=== PATIENT | male | born 1970 | race Caucasian/White ===

== ENCOUNTER 2024-11-28 20:44 | Observation (INO) ==
[2024-11-28 21:34] LABS: Hematocrit (blood only) 45.4 % (42.0-52.0); Hemoglobin 15.4 g/dl (14.0-18.0); Immature Granulocytes # (auto) 0.02 K/uL (0.01-0.20); Immature Granulocytes % (auto) 0.3 %; Mean Corpuscular Hemoglobin 30.0 pg (25.0-34.0); Mean Corpuscular Volume 88.3 fL (80.0-100.0); Platelet Count 243 K/uL (130-400); RDW Standard Deviation 39.6 fL (36.4-46.3); Red Blood Count 5.14 M/uL (4.70-6.10); White Blood Count 7.91 K/ul (4.8-10.8)
[2024-11-28 21:46] LABS: Alanine Aminotransferase 36.0 U/L (7-52); Albumin Globulin Ratio 1.2 (0.9-2); Alkaline Phosphatase 77.0 U/L (34-104); Anion Gap 7.0 (3-11); Bilirubin,Total 0.5 mg/dl (0.2-1.0); Blood Urea Nitrogen 15.0 mg/dl (6-23); Calcium 9.0 mg/dl (8.6-10.3); Carbon Dioxide 28.0 mmol/L (21-32); Chloride 105.0 mmol/L (98-107); Creatinine Clr Calc Pharmacy 105.0 ml/min; Globulin 3.4 gm/dl (2.5-4.0); Glucose 112.0 mg/dl (70-99(Fasting)); Lipase 12.0 U/L (11-82); Potassium 4.0 mmol/L (3.5-5.1); Sodium 140.0 mmol/L (136-145); Total Protein 7.4 gm/dl (6.0-8.3)
--- NOTE | 2024-11-28 21:56 | Emergency Department Note ---
History of Present Illness General Chief complaint: Abdominal Pain Stated complaint: ABD PAIN Time Seen by Provider: 11/28/24 21:42 History of Present Illness Maximum Pain Intensity: 8 This is a 54-year-old male presenting to the emergency department for evaluation of periumbilical abdominal pain. 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 He states that he was bending over when he felt periumbilical abdominal pain. He has a hernia in this area and is concerned this may be the cause of the pain. His discomfort has not improved. Episode was around 2 PM, roughly 8 hours ago. He is without nausea or vomiting. No difficulty going to the bathroom. Discomfort is rated an 8/10. No history of abdominal surgery. Home Medications Medication Instructions Recorded Confirmed Type acetaminophen 500 mg tablet 1,000 mg PO Q6H PRN Pain 11/28/24 11/28/24 History (Tylenol Extra Strength) Allergies Allergy/AdvReac Type Severity Reaction Status Date / Time pollen extracts Allergy Intermediate ITCHY Verified 11/28/24 21:41 EYES, SNEEZING, CONGESTION Past Med/Surg History Problem List (Updated 11/29/24 @ 04:40 by Pablo Lazaro PA-C) Periumbilical hernia (Acute) Kidney mass (Acute) Small bowel obstruction (Acute) No significant past surgical history No chronic diseases present Social History Smoking Status: Former smoker Hx Alcohol Use: Yes Alcohol type: beer Hx Substance Use: No Communication Ability: Effective Beliefs That Will Affect Care: None Current Living Situation: Alone Other Information That Helps Us Care for You: No Feels Safe at Home: Yes Safety Concerns: Feels Safe At This Time Assistive Devices: Denture - Upper, Denture - Lower and Glasses Review of Systems A total of 10 systems reviewed and were otherwise negative Physical Exam Vital Signs Vital Signs - 24 hr 11/28/24 20:50 11/28/24 21:08 11/28/24 21:16 Temperature 36.6 C Temperature Source Temporal Artery Scan Pulse Rate 62 61 Pulse Rate [Apical] Respiratory Rate 16 Respiratory Effort / Characteristics Non-Labored Spontaneous Respiratory Depth Normal Respiratory Pattern Regular Blood Pressure 171/96 H Blood Pressure Mean 121 Pulse Oximetry 95 Oxygen Delivery Method Room Air Room Air Sepsis Recent Fever Within 48 Hours No Sepsis New/Unexplained Change in Mental Status N/A Sepsis Action Taken by Nursing No Action Required 11/28/24 21:16 11/28/24 22:00 11/29/24 00:06 Temperature Temperature Source Pulse Rate 67 60 Pulse Rate [Apical] Respiratory Rate 15 13 Respiratory Effort / Characteristics Non-Labored Respiratory Depth Normal Respiratory Pattern Blood Pressure 158/92 H 140/85 Blood Pressure Mean 114 103 Pulse Oximetry 96 94 Oxygen Delivery Method Room Air Room Air Sepsis Recent Fever Within 48 Hours Sepsis New/Unexplained Change in Mental Status Sepsis Action Taken by Nursing 11/29/24 01:00 11/29/24 01:25 Temperature Temperature Source Pulse Rate 76 Pulse Rate [Apical] 59 L Respiratory Rate 16 18 Respiratory Effort / Characteristics Non-Labored Spontaneous Respiratory Depth Normal Respiratory Pattern Blood Pressure 137/90 Blood Pressure Mean 99 Pulse Oximetry 95 96 Oxygen Delivery Method Room Air Room Air Sepsis Recent Fever Within 48 Hours Sepsis New/Unexplained Change in Mental Status Sepsis Action Taken by Nursing VITALS: Vitals are noted on the nurse's note and reviewed by myself. Vital signs stable. GENERAL: Well-developed, well-nourished, white male, who is in no acute distress and resting comfortably. Patient is cooperative with the examination. HEAD: Normocephalic atraumatic. NECK: Supple without nuchal rigidity. No lymphadenopathy. No thyromegaly. Cervical spine is nontender. HEART: Regular rate and rhythm without murmurs gallops or rubs. LUNGS: Clear to auscultation bilaterally without wheezes, rales or rhonchi. No retractions or accessory muscle use. ABDOMEN: Positive normal bowel sounds x 4. Soft with noted periumbilical tenderness. There is a small periumbilical hernia that was easily reduced with manual manipulation at bedside. MUSCULOSKELETAL: No muscle atrophy, erythema, or edema noted. Full range of motion in all extremities. NEURO: Patient was alert and oriented to person place and time. CN II through XII grossly intact. SKIN: The skin was without rashes, erythema, edema, or bruising. Capillary refill less than 2 seconds. Course Administered Medications Lactated Ringer's (Lr) 1,000 mls @ 125 mls/hr IV .Q8H AP Stop: 11/29/24 11:43 Last Admin: 11/29/24 03:51 Dose: 125 mls/hr Documented By: ELS Discontinued Medications Acetaminophen (Ofirmev) 1,000 mg in 100 mls @ 400 mls/hr IV NOW STA Stop: 11/28/24 22:07 Last Infusion: 11/28/24 22:17 Dose: Infused Documented By: NRAmbrose Admin: 11/28/24 21:58 Dose: 400 mls/hr Documented By: HALEY Sodium Chloride (Nss) 1,000 mls @ 999 mls/hr IV .Q1H1M ONE Stop: 11/28/24 22:53 Last Infusion: 11/29/24 00:10 Dose: Infused Documented By: Admin: 11/28/24 21:58 Dose: 999 mls/hr Documented By: HALEY Ioversol (Optiray 320 100ml) 90 ml IV ONCE ONE Stop: 11/28/24 22:41 Last Admin: 11/28/24 22:40 Dose: 90 ml Documented By: CODY Medical Decision Making Differential Diagnosis Differential diagnosis: Etiologies such as biliary colic, cholecystitis, hepatitis, pancreatitis, cardiac disease, pancreatitis, gastritis, peptic ulcer disease, appendicitis, cystitis, diverticulitis, mesenteric ischemia, inflammatory bowel disease, ileus, bowel obstruction, testicular/adnexal torsion, aortic pathology, shingles, as well as others were considered Laboratory Data 11/28/24 21:00 11/28/24 21:00 Lab Results 11/28/24 11/28/24 Range/Units 21:00 22:50 WBC 7.91 (4.8-10.8) K/ul RBC 5.14 (4.70-6.10) M/uL Hgb 15.4 (14.0-18.0) g/dl Hct 45.4 (42.0-52.0) % MCV 88.3 (80.0-100.0) fL MCH 30.0 (25.0-34.0) pg MCHC 33.9 (32.0-36.0) g/dL RDW Std Deviation 39.6 (36.4-46.3) fL RDW Coeff of Roberta 12.3 (11.5-14.5) % Plt Count 243 (130-400) K/uL MPV 9.9 (9.4-12.4) fL Immature Gran % (Auto) 0.3 % Neut % (Auto) 67.8 % Lymph % (Auto) 20.9 % [place] % (Auto) 7.7 % Eos % (Auto) 3.0 % Baso % (Auto) 0.3 % Neut # (Auto) 5.37 (1.40-6.50) K/uL Lymph # (Auto) 1.65 (1.20-3.40) K/uL [place] # (Auto) 0.61 H (0.11-0.59) K/uL Eos # (Auto) 0.24 (0.00-0.50) K/uL Baso # (Auto) 0.02 (0.00-0.20) K/uL Immature Gran # (Auto) 0.02 (0.01-0.20) K/uL Sodium 140 (136-145) mmol/L Potassium 4.0 (3.5-5.1) mmol/L Chloride 105 (98-107) mmol/L Carbon Dioxide 28 (21-32) mmol/L Anion Gap 7 (3-11) BUN 15 (6-23) mg/dl Creatinine 0.92 (0.6-1.4) mg/dl Est Cr Clr Drug Dosing 105.0 ml/min eGFR 98.24 BUN/Creatinine Ratio 16.3 (10-20) Glucose 112 H (70-99(Fasting)) mg/dl Calcium 9.0 (8.6-10.3) mg/dl Total Bilirubin 0.5 (0.2-1.0) mg/dl AST 25 (13-39) U/L ALT 36 (7-52) U/L Alkaline Phosphatase 77 (34-104) U/L Total Protein 7.4 (6.0-8.3) gm/dl Albumin 4.0 (3.4-5.0) gm/dl Globulin 3.4 (2.5-4.0) gm/dl Albumin/Globulin Ratio 1.2 (0.9-2) Lipase 12 (11-82) U/L Urine Color Yellow Urine Appearance Clear (Clear) Urine pH 7.5 (4.5-7.5) Ur Specific [place] 1.034 H (1.000-1.030) Urine Protein Negative (Negative) Urine Glucose (UA) Negative (Negative) Urine Ketones 2+ H (Negative) Urine Blood Negative (Negative) Urine Nitrite Negative (Negative) Urine Bilirubin Negative (Negative) Urine Urobilinogen Negative (Negative) Ur Leukocyte Esterase Trace H (Negative) Urine WBC (Auto) 0-5 (0-5) /hpf Urine RBC (Auto) 0-2 (0-2) /hpf U Hyaline Cast (Auto) 0-2 (0-2) /lpf U Epithel Cells (Auto) 0-2 (0-2) /hpf Urine Bacteria (Auto) None Seen (None Seen) Urine Comment Imaging Data Radiologist's Impression: Abdomen/Pelvis CT 11/28/24 21:53 CR Exam(s): CT ABDOMEN + PELVIS With Contrast IV Amt: 90cc optiray 320 EXAM: CT Abdomen and Pelvis With Intravenous Contrast CLINICAL HISTORY: Reason for exam: Periumbilical abd pain. Reduced hernia already.. TECHNIQUE: Axial computed tomography images of the abdomen and pelvis with intravenous contrast. CTDI is 27.45 mGy and DLP is 1517.88 mGy-cm. Automated exposure control was utilized for the study. A dose lowering technique was utilized adhering to the principles of ALARA. CONTRAST: Patient received 90cc optiray 320 of IV contrast COMPARISON: No relevant prior studies available. FINDINGS: Lung bases: Unremarkable. No mass. No consolidation. ABDOMEN: Liver: Fatty liver. Gallbladder and bile ducts: Unremarkable. No calcified stones. No ductal dilation. Pancreas: Unremarkable. No mass. No ductal dilation. Spleen: Unremarkable. No splenomegaly. Adrenals: Unremarkable. No mass. Kidneys and ureters: There is 4.3 x 4.4 cm solid mass lesion seen arising from the right renal cortex. No hydronephrosis. Stomach and bowel: There is mildly dilated fluid distended small bowel loops in the abdomen. There is diffuse dose to sigmoid colonic wall thickening which could be from ileitis. PELVIS: Appendix: No findings to suggest acute appendicitis. Bladder: Unremarkable. No mass. Reproductive: Unremarkable as visualized. ABDOMEN and PELVIS: Intraperitoneal space: Unremarkable. No free air. No significant fluid collection. Bones/joints: Moderate L5/S1 degenerative disc disease. No acute fracture. No dislocation. Soft tissues: Unremarkable. Vasculature: Unremarkable. No abdominal aortic aneurysm. Lymph nodes: Unremarkable. No enlarged lymph nodes. IMPRESSION: 1. Distal ileitis with low-grade small bowel obstruction 2. 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 Nursing notes, EMR, and Medication List were personally reviewed. No social concerns were identified as barriers to patients care. History was provided by the Patient. Patient appears to have abdominal pain bringing him to the ER. On examination he has a periumbilical hernia that is quite notable. This was easily reduced at bedside. Patient continues to have some discomfort and out of concern for possible extended incarcerated event he was sent to CT scan for imaging. IV access was established and labs were obtained. Patient was given IV Tylenol and IV fluids here in the ER. Blood work is as above and was reviewed. He does not have a significant elevated white blood cell count, gross anemia, bandemia, or significant electrolyte imbalance. Lipase and transaminases not diagnostic. Urine without evidence of infection. CT scan was performed and reviewed by myself and radiology. Patient has a few concerning findings on his CT scan. Firstly he does appear to have a small bowel obstruction, which I suspect is from his periumbilical hernia. Additionally he has an ileitis. Unexpectedly the patient has a right-sided renal mass, which does not appear cystic and is concerning for carcinoma. Escalation of care was considered, and felt to be necessary. The patient does not seem well for discharge and will need additional care. Case was discussed with both the on-call surgical team, and the on-call hospitalist team. Please see their dictations for further patient course, plan, and disposition. The chart was completed utilizing [employer] Speech Voice Recognition Software. Grammatical errors, random word insertions, pronoun errors, and incomplete sentences are an occasional consequence of this system due to software limitations, ambient noise, and hardware issues. Any formal questions or concerns about the content, text, or information contained within the body of this dictation should be directly addressed to the provider for clarification. Impression & Plan Small bowel obstruction, Kidney mass, Periumbilical hernia Discharge Plan Visit Data Chief Complaint: Abdominal Pain Stated Complaint: ABD PAIN ED Provider: Adilson Liz ED Midlevel Provider: Pablo Lazaro Discharge Problem: Small bowel obstruction, Kidney mass, Periumbilical hernia Patient Disposition: Admitted As Inpatient Condition: Fair Discharge Instructions Interventions: ED Discharge Assessment Last Done: 11/29/24 03:29
[2024-11-28] MEDS: SODIUM CHLORIDE 0.9% 1,000 ML IV ONE (21:58)
[2024-11-28] MEDS: ACETAMINOPHEN 1,000 MG/100 ML VIAL IV STA (21:58)
[2024-11-28] MEDS: OPTIRAY 320 100ml IV ONE (22:40)
[2024-11-28 23:03] LABS: Appearance Urine Clear (Clear); Bacteria Urine Automated None Seen (None Seen); Cast Urine Automated 0-2 /lpf (0-2); Epithelial Cell Urine Auto 0-2 /hpf (0-2); Glucose Urine UA Negative (Negative); RBC Urine Automated 0-2 /hpf (0-2); WBC Urine Automated 0-5 /hpf (0-5)
--- NOTE | 2024-11-29 00:24 | CT Scan Report ---
Exam(s): CT ABDOMEN + PELVIS With Contrast IV Amt: 90cc optiray 320 EXAM: CT Abdomen and Pelvis With Intravenous Contrast CLINICAL HISTORY: Reason for exam: Periumbilical abd pain. Reduced hernia already.. TECHNIQUE: Axial computed tomography images of the abdomen and pelvis with intravenous contrast. CTDI is 27.45 mGy and DLP is 1517.88 mGy-cm. Automated exposure control was utilized for the study. A dose lowering technique was utilized adhering to the principles of ALARA. CONTRAST: Patient received 90cc optiray 320 of IV contrast COMPARISON: No relevant prior studies available. FINDINGS: Lung bases: Unremarkable. No mass. No consolidation. ABDOMEN: Liver: Fatty liver. Gallbladder and bile ducts: Unremarkable. No calcified stones. No ductal dilation. Pancreas: Unremarkable. No mass. No ductal dilation. Spleen: Unremarkable. No splenomegaly. Adrenals: Unremarkable. No mass. Kidneys and ureters: There is 4.3 x 4.4 cm solid mass lesion seen arising from the right renal cortex. No hydronephrosis. Stomach and bowel: There is mildly dilated fluid distended small bowel loops in the abdomen. There is diffuse dose to sigmoid colonic wall thickening which could be from ileitis. PELVIS: Appendix: No findings to suggest acute appendicitis. Bladder: Unremarkable. No mass. Reproductive: Unremarkable as visualized. ABDOMEN and PELVIS: Intraperitoneal space: Unremarkable. No free air. No significant fluid collection. Bones/joints: Moderate L5/S1 degenerative disc disease. No acute fracture. No dislocation. Soft tissues: Unremarkable. Vasculature: Unremarkable. No abdominal aortic aneurysm. Lymph nodes: Unremarkable. No enlarged lymph nodes. IMPRESSION: 1. Distal ileitis with low-grade small bowel obstruction 2. 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
--- NOTE | 2024-11-29 00:56 | Surgery Consultation ---
Date of Consultation November 29, 2024 Assessment & Plan (1) Small bowel obstruction: I discussed with the treating clinician in the emergency department and the patient is being admitted on the hospitalist service. From surgery perspective we recommend the following: Appears so by CT scan the patient is suffering from ileitis. The resulting inflammation is causing some dilatation of the small bowel resulting in a low- grade small bowel obstruction This time the patient's abdomen is entirely benign without any pain with palpation Would recommend keeping the patient n.p.o. this evening. She feels improved tomorrow and he continues to have bowel function we can begin advancing his diet beginning with clear liquids Would recommend hydrating the patient with intravenous fluids Patient also has a palpable umbilical hernia. Consideration be given to having this repaired but this can be done on an elective basis and is not in need of urgent repair at this time. (Although the hernia is palpable there is no bowel noted in the hernia by CT scan) Additional recommendations will be forthcoming based on his clinical course as it unfolds History of Present Illness Reason for Consultation: Small bowel obstruction History of Present Illness This is a 54-year-old male who presented to the emergency department secondary abdominal pain that began earlier this evening. He says that the pain was located primarily in the periumbilical region without any radiation or other modifying factors. He did have nausea without vomiting. He notes that his bowels have been moving normally. He denies any previous abdominal surgeries and he denies any weight loss. Patient says that he does have a known umbilical hernia and he was planning on having this repaired but has not seen any medical providers for this reason. With his current presentation he denies any fevers, shakes, or chills. She is Since arrival to hospital patient has had labs and imaging which I independent reviewed. Patient was noted to have ileitis and also had some dilated and fluid-filled small bowel which was distended resulting in a low-grade small bowel obstruction. He was also noted to have a solid mass in the right kidney. There is no free intraperitoneal air or free intraperitoneal fluid. Labs including CBC white blood cell count, hemoglobin, hematocrit, platelet count were normal. Chemistry profile showed sodium and potassium as well as BUN and creatinine were normal. There is no elevation of patient's LFTs. Urinalysis showed trace leukocyte Estrace but was otherwise not indicative of infection. At the time of my interview the patient was resting comfortably in bed and he was in no distress. Allergies Allergy/AdvReac Type Severity Reaction Status Date / Time pollen extracts Allergy Intermediate ITCHY Verified 11/28/24 21:41 EYES, SNEEZING, CONGESTION Home Medications Medication Instructions Recorded Confirmed Type acetaminophen 500 mg tablet 1,000 mg PO Q6H PRN Pain 11/28/24 11/28/24 History (Tylenol Extra Strength) Patient History Social History Smoking Status: Former smoker Hx Alcohol Use: Yes Alcohol type: beer Hx Substance Use: No Communication Ability: Effective Beliefs That Will Affect Care: None Current Living Situation: Alone Other Information That Helps Us Care for You: No Feels Safe at Home: Yes Safety Concerns: Feels Safe At This Time Assistive Devices: Denture - Upper, Denture - Lower and Glasses Review of Systems Review of Systems: All systems reviewed & are unremarkable except as noted in HPI & below Physical Exam Constitutional: WD/WN, vitals as above Eyes: no conjunctival abnormality ENMT: Ears: no hearing impairment and no external ear abnormality Mouth: no oropharynx abnormality Neck: trachea midline Respiratory: normal respiratory effort; no respiratory distress and no labored breathing Cardiovascular: Rate/Rhythm: regular rate and regular rhythm Gastrointestinal (Abdomen): At this time my interview the patient's abdomen was noted to be soft without distention. There is minimal to no pain with palpation. There is no rebound tenderness, guarding, rigidity, or signs of peritonitis. Patient did not have an apparent umbilical hernia that was easily palpable. There is no pain with palpation at the time of my exam of this area. There are no overlying skin changes Musculoskeletal: No calf tenderness Skin: no rashes Neurologic: moves all extremities Psychiatric: A+Ox3, euthymic affect Genitourinary: No CVA tenderness with percussion bilaterally Results & Data Vital Signs (Past 12 Hours) Vital Signs Temp Pulse Resp BP Pulse Ox O2 Del Method 11/29/24 00:06 60 13 140/85 94 Room Air 11/28/24 22:00 67 15 158/92 H 96 Room Air 11/28/24 21:16 Room Air 11/28/24 21:08 61 11/28/24 20:50 36.6 C 62 16 171/96 H 95 Room Air PG Care Time/CCT Total # of Minutes Spent Total Time Spent with Patient: Total time spent is greater than 50% in coordination of care (as documented) at patient's floor/unit and/or counseling patient: Coding Level of Care Code 82240 IN/OBS CONSULT LVL 5,80M Diagnoses Small bowel obstruction K56.609
--- NOTE | 2024-11-29 01:48 | History & Physical Report ---
Date of Service November 29, 2024 Assessment & Plan (1) Small bowel obstruction: (2) No significant past surgical history: (3) Kidney mass: Plan 54 y/o male with no PMH that presented to the Ed due to abdominal pain. Patient found with small bowel obstruction. CT remarkable for an umbilical hernia and an accidental finding of a solid mass lesion in the right kidney. Patient will be admitted for pain management and bowel rest Small bowel obstruction - Sudden abdominal pain while working today. Nausea as well, no vomiting - Abdomen CT: Distal ileitis with low grade small bowel obstruction - Patient had a bowel movement before arriving to the ED. Denied any bleeding or black stools - No history of abdominal surgeries. - No leukocytosis. No fevers - surgery consulted, aprec recommendations - NPO - LR 125 ml/hr - Labs AM Umbilical hernia - Since June - No outpatient workup - No urgent repair at this time Solid mass right kidney - Accidental finding - Patient does not have a PCP. Will need to establish with PCP and further workup of the mass - Kidney function normal. -denied any weight loss DVt prophylaxis: SCDs for now. Ambulation History of Present Illness Primary Care Provider: NO PCP 54 y/o male with no PMH that presented to the Ed due to abdominal pain. 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 He states having nausea as well. No vomiting. Pain was on his umbilical region. Patient had a bowel movement before arriving to the ED. Patient noticed that the umbilical hernia had been present since June. No outpatient work up had been done. He states passing gasses. Denied any weight loss. Denied any alcohol use or smoking. Denied any chills, fevers, diarrhea. Patient doesn't have a PCP, does not take any daily medication. On my evaluation patient was pain free after Tylenol. Allergies Allergy/AdvReac Type Severity Reaction Status Date / Time pollen extracts Allergy Intermediate ITCHY Verified 11/28/24 21:41 EYES, SNEEZING, CONGESTION Home Medications Medication Instructions Recorded Confirmed Type acetaminophen 500 mg tablet 1,000 mg PO Q6H PRN Pain 11/28/24 11/28/24 History (Tylenol Extra Strength) Past Med/Surg History Problem List (Updated 11/29/24 @ 01:57 by Boris Farah MD) Kidney mass Small bowel obstruction No significant past surgical history No chronic diseases present Social History Smoking Status: Never smoker Feels Safe at Home: Yes Review of Systems Review of Systems: as per hpi Physical Exam Constitutional: WD/WN, vitals as above Eyes: PERRL, conjunctivae normal, anicteric sclerae ENMT: external ear and nose normal, oropharynx normal Respiratory: normal respiratory effort, lungs clear to auscultation Cardiovascular: RRR, no murmur, no edema Gastrointestinal (Abdomen): normal bowel sounds, soft, nontender, no hepatosplenomegaly Percussion/Palpation: abdomen soft and + hernia (umbilical hernia); no guarding, abdomen not rigid and no abdominal mass Musculoskeletal: no cyanosis or clubbing, extremities motor strength 5/5 Results & Data Results & Data Vital Signs (Past 12 Hours) Vital Signs Temp Pulse Pulse Resp BP Pulse Ox O2 Del Method 11/29/24 01:25 59 L 18 96 Room Air 11/29/24 01:00 76 16 137/90 95 Room Air 11/29/24 00:06 60 13 140/85 94 Room Air 11/28/24 22:00 67 15 158/92 H 96 Room Air 11/28/24 21:16 Room Air 11/28/24 21:08 61 11/28/24 20:50 36.6 C 62 16 171/96 H 95 Room Air Code Status & VTE Plan VTE Prophylaxis Plan VTE Prophylaxis will be ordered: Yes Resident Activity Tracking Resident Involvement: Resident Care Provided Care Provided: Adult Hospital Medicine
[2024-11-29] MEDS ORDERED: ACETAMINOPHEN 1,000 MG/100 ML VIAL IV PRN (03:44)
[2024-11-29] MEDS ORDERED: ONDANSETRON INJ 2 MG/ML 2 ML VIAL IV PRN (03:44)
[2024-11-29] MEDS: LACTATED RINGER'S 1,000 ML IV SCH (03:51)
[2024-11-29 05:56] LABS: Hematocrit (blood only) 41.2 % (42.0-52.0); Hemoglobin 14.0 g/dl (14.0-18.0); Immature Granulocytes # (auto) 0.01 K/uL (0.01-0.20); Immature Granulocytes % (auto) 0.1 %; Mean Corpuscular Hemoglobin 30.2 pg (25.0-34.0); Mean Corpuscular Volume 88.8 fL (80.0-100.0); Platelet Count 214 K/uL (130-400); RDW Standard Deviation 40.0 fL (36.4-46.3); Red Blood Count 4.64 M/uL (4.70-6.10); White Blood Count 6.80 K/ul (4.8-10.8)
[2024-11-29 06:12] LABS: Anion Gap 5.0 (3-11); Blood Urea Nitrogen 12.0 mg/dl (6-23); Calcium 8.1 mg/dl (8.6-10.3); Carbon Dioxide 27.0 mmol/L (21-32); Chloride 108.0 mmol/L (98-107); Creatinine Clr Calc Pharmacy 112.3 ml/min; Glucose 106.0 mg/dl (70-99(Fasting)); Potassium 3.8 mmol/L (3.5-5.1); Sodium 140.0 mmol/L (136-145)
--- NOTE | 2024-11-29 06:14 | Urology Consultation ---
Date of Consultation November 29, 2024 Assessment & Plan (1) Kidney mass: Patient has been admitted to the hospitalist service from urologic perspective we recommend the following: Patient is being managed for ileitis as well as he has been seen by general surgery for small bowel obstruction Provided the patient's abdominal exam continues to improve his diet will be advanced beginning with clear liquids but this will be deferred to general surgery and the primary service Concerning patient's kidney massas the patient will likely require additional imagingand ultimate plans for potential surgery regarding this will need to be made once he has recovered from his acute illness of ileitis Additional recommendations will be forthcoming based on his clinical course as unfolds History of Present Illness Reason for Consultation: Renal mass Attending Physician: Vikram Mclaughlin DO History of Present Illness This is a 54-year-old male who presented to the emergency department secondary to abdominal pain. He says that this pain occurred when he was working on a car and is located primarily in the periumbilical region. He did not identify any modifying factors or radiation. He reports nausea without vomiting but notes that he has been having normal bowel movements. He has had no prior abdominal surgeries or weight loss. He says he has a known umbilical hernia but has not had any surgical intervention for this problem. Concerning urologic symptoms he denies any fevers, shakes, or chills. He denies any back or flank pain. He denies any dysuria or hematuria. Since arrival to hospital the patient has had labs and imaging which independent reviewed. General surgery seen the patient for ileitis and concern for small bowel obstruction but patient is also noted to have a 4.3 x 4.4 cm solid mass lesion in the right renal cortex without hydronephrosis. The interpreting radiologist felt that this could potentially represent malignancy. Labs including CBC were white blood cell count, hemoglobin, hematocrit, platelet count were normal. Chemistry profile showed sodium and potassium as well as the BUN and creatinine were normal. The patient's urinalysis showed trace leukocyte Estrace but was otherwise negative for infection. At the time of my interview he was resting comfortably in bed and he was in no distress Allergies Allergy/AdvReac Type Severity Reaction Status Date / Time pollen extracts Allergy Intermediate ITCHY Verified 11/28/24 21:41 EYES, SNEEZING, CONGESTION Home Medications Medication Instructions Recorded Confirmed Type acetaminophen 500 mg tablet 1,000 mg PO Q6H PRN Pain 11/28/24 11/28/24 History (Tylenol Extra Strength) Patient History Social History Smoking Status: Former smoker Hx Alcohol Use: Yes Alcohol type: beer Hx Substance Use: No Communication Ability: Effective Beliefs That Will Affect Care: None Current Living Situation: Alone Other Information That Helps Us Care for You: No Feels Safe at Home: Yes Safety Concerns: Feels Safe At This Time Assistive Devices: Denture - Upper, Denture - Lower and Glasses Review of Systems Review of Systems: All systems reviewed & are unremarkable except as noted in HPI & below Physical Exam Constitutional: WD/WN, vitals as above Eyes: no conjunctival abnormality ENMT: Ears: no hearing impairment and no external ear abnormality Mouth: no oropharynx abnormality Neck: trachea midline Respiratory: normal respiratory effort; no respiratory distress and no labored breathing Cardiovascular: Rate/Rhythm: regular rate and regular rhythm Gastrointestinal (Abdomen): Patient's abdomen is soft without distention. He did have a palpable umbilical hernia that is not causing much pain at the time of my exam. There is no overlying skin changes. There is no rebound tenderness or guarding. There are no other signs of peritonitis Musculoskeletal: No calf tenderness Skin: no rashes Neurologic: moves all extremities Psychiatric: A+Ox3, euthymic affect Genitourinary: No CVA tenderness with percussion bilaterally Results & Data Vital Signs (Past 12 Hours) Vital Signs Temp Pulse Pulse Pulse Resp BP BP 11/29/24 03:44 36.4 C 57 L 18 122/69 11/29/24 03:01 58 L 16 111/62 11/29/24 01:25 59 L 18 11/29/24 01:00 76 16 137/90 11/29/24 00:06 60 13 140/85 11/28/24 22:00 67 15 158/92 H 11/28/24 21:16 11/28/24 21:08 61 11/28/24 20:50 36.6 C 62 16 171/96 H Pulse Ox O2 Del Method 11/29/24 03:44 97 Room Air 11/29/24 03:01 98 Room Air 11/29/24 01:25 96 Room Air 11/29/24 01:00 95 Room Air 11/29/24 00:06 94 Room Air 11/28/24 22:00 96 Room Air 11/28/24 21:16 Room Air 11/28/24 21:08 11/28/24 20:50 95 Room Air PG Care Time/CCT Total # of Minutes Spent Total Time Spent with Patient: Total time spent is greater than 50% in coordination of care (as documented) at patient's floor/unit and/or counseling patient: Coding Level of Care Code 51788 IN/OBS CONSULT LVL 5,80M Diagnoses Kidney mass N28.89
[2024-11-29 08:10] VITALS: BP 126/78; PULSE 53; RESP 16; TEMP 97.7; O2SAT 95
--- NOTE | 2024-11-29 10:25 | Gastrointestinal Consultation ---
Date of Consultation November 29, 2024 Assessment & Plan (1) Small bowel obstruction: (2) Ileitis: Plan Patient admitted with sudden onset abdominal pain. CT imaging shown ileitis with low grade SBO. He has been feeling better since admission and is moving bowels and passing gas. He has bowel sounds on exam today. - we discussed eventual colonoscopy to further evaluate his ileitis. Patient tells me that he is agreeable to having one, but he does not wish to pursue on this admission. He tells me that he is planning to leave the hospital today as he cannot afford to miss more work. He understands that this would not be our recommendation. Patient understands that by not doing testing that polyps, colitis, cancers, etc. can be missed. Patient voiced understanding of this but still wishes to defer testing at this time. If patient does end up leaving, would set up a colonoscopy as an outpatient to further evaluate as there is a concern for underlying malignancy. - Further recommendations to come with Supervising GI provider on medical rounds. Please see co-signature comments. Supervising Physician Co-Signing Physician Notes Patient was discharged prior to my seeing him. It was discussed with him to follow-up for an outpatient colonoscopy. History of Present Illness Reason for Consultation: SBO related to ileitis Requesting Physician: Vikram Mclaughlin DO Attending Physician: Vikram Mclaughlin DO History of Present Illness Patient is a 54 year old male with no significant past medical history and no PCP who presented to the ED due to abdominal pain which started suddenly yesterday. 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 At first, he thought this may be related to an umbilical hernia he has had, but pain would not go away and he found he was unable to bend over without causing worsening of the pain. He came to the ED and had a CT scan which revealed a small bowel obstruction (see below). he tells me that he has had no changes in his bowels and he has 2 bowel movements daily which is his baseline. he has moved his bowels since admission and tells me he is passing gas. no blood in the stools or melena. He tells me that since admission, he has not had any further abdominal pain and is feeling better. he has never had a colonoscopy. He has a cousin who he believes has some from of colitis which resulted in a colostomy. The remainder of the GI ROS were unremarkable. 11/29/24 wbc 6.8, hgb 14, hct 41.2, plts 214, Na 140, K 3.8, BUN 12, Creatinine .86. LFTs unremarkable. lipase 12. CT 11/29/24 Distal ileitis with low-grade small bowel obstruction. 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 Allergies Allergy/AdvReac Type Severity Reaction Status Date / Time pollen extracts Allergy Intermediate ITCHY Verified 11/28/24 21:41 EYES, SNEEZING, CONGESTION Home Medications Medication Instructions Recorded Confirmed Type acetaminophen 500 mg tablet 1,000 mg PO Q6H PRN Pain 11/28/24 11/28/24 History (Tylenol Extra Strength) Patient History Social History Smoking Status: Former smoker Hx Alcohol Use: Yes Alcohol type: beer Hx Substance Use: No Communication Ability: Effective Beliefs That Will Affect Care: None Current Living Situation: Alone Feels Safe at Home: Yes Assistive Devices: Denture - Upper, Denture - Lower and Glasses Review of Systems Review of Systems: All systems reviewed & are unremarkable except as noted in HPI & below Physical Exam Constitutional: WD/WN, vitals as above Respiratory: normal respiratory effort, lungs clear to auscultation Cardiovascular: Rate/Rhythm: regular rate and regular rhythm Gastrointestinal (Abdomen): normal bowel sounds, soft, nontender, no hepatosplenomegaly umbilical hernia Psychiatric: Orientation: alert and oriented x 3 Affect: euthymic affect Results & Data Vital Signs (Past 12 Hours) Vital Signs Temp Pulse Pulse Pulse Resp BP BP 11/29/24 08:09 97.7 F 53 L 16 126/78 11/29/24 03:44 97.6 F 57 L 18 11/29/24 03:01 58 L 16 11/29/24 01:25 59 L 18 11/29/24 01:00 76 16 137/90 11/29/24 00:06 60 13 140/85 BP Pulse Ox O2 Del Method 11/29/24 08:09 95 Room Air 11/29/24 03:44 122/69 97 Room Air 11/29/24 03:01 111/62 98 Room Air 11/29/24 01:25 96 Room Air 07/01/25 01:00 95 Room Air 11/29/24 00:06 94 Room Air Coding Level of Care Code 74916 IN/OBS CONSULT LVL 4,60M Diagnoses Small bowel obstruction K56.609 Ileitis K52.9
--- NOTE | 2024-11-29 11:53 | Surgery Progress Note ---
Date of Service November 29, 2024 Assessment & Plan (1) Ileitis: Plan: Enteritis/ileitis with no evidence of small bowel obstruction. May advance diet as tolerated Follow-up with GI as an outpatient No surgical intervention at this time, surgery will follow peripherally, call with questions or concerns (2) Periumbilical hernia: (3) Kidney mass: Admission and Anticipated Discharge Date Admission Date: November 29, 2024 Subjective Admitted with enteritis and partial small bowel obstruction. Feeling better, having multiple loose bowel movements. Pain that brought him is gone. Physical Exam Constitutional: WD/WN, vitals as above Gastrointestinal (Abdomen): normal bowel sounds, soft, nontender, no hepatosplenomegaly Percussion/Palpation: + hernia (Small reducible umbilical hernia) Results & Data Vital Signs (Past 12 Hours) Vital Signs Temp Pulse Pulse Pulse Resp BP BP 11/29/24 08:09 36.5 C 53 L 16 126/78 11/29/24 03:44 36.4 C 57 L 18 11/29/24 03:01 58 L 16 11/29/24 01:25 59 L 18 11/29/24 01:00 76 16 137/90 11/29/24 00:06 60 13 140/85 BP Pulse Ox O2 Del Method 11/29/24 08:09 95 Room Air 11/29/24 03:44 122/69 97 Room Air 11/29/24 03:01 111/62 98 Room Air 11/29/24 01:25 96 Room Air 11/29/24 01:00 95 Room Air 11/29/24 00:06 94 Room Air Laboratory Results Laboratory Results - last 24 hr 11/28/24 11/28/24 11/29/24 21:00 22:50 02:00 WBC 7.91 RBC 5.14 Hgb 15.4 Hct 45.4 MCV 88.3 MCH 30.0 MCHC 33.9 RDW Std Deviation 39.6 RDW Coeff of Roberta 12.3 Plt Count 243 MPV 9.9 Immature Gran % (Auto) 0.3 Neut % (Auto) 67.8 Lymph % (Auto) 20.9 [place] % (Auto) 7.7 Eos % (Auto) 3.0 Baso % (Auto) 0.3 Neut # (Auto) 5.37 Lymph # (Auto) 1.65 [place] # (Auto) 0.61 H Eos # (Auto) 0.24 Baso # (Auto) 0.02 Immature Gran # (Auto) 0.02 Sodium 140 Potassium 4.0 Chloride 105 Carbon Dioxide 28 Anion Gap 7 BUN 15 Creatinine 0.92 Est Cr Clr Drug Dosing 105.0 eGFR 98.24 BUN/Creatinine Ratio 16.3 Glucose 112 H Lactate 1.2 Calcium 9.0 Total Bilirubin 0.5 AST 25 ALT 36 Alkaline Phosphatase 77 Total Protein 7.4 Albumin 4.0 Globulin 3.4 Albumin/Globulin Ratio 1.2 Lipase 12 Urine Color Yellow Urine Appearance Clear Urine pH 7.5 Ur Specific [place] 1.034 H Urine Protein Negative Urine Glucose (UA) Negative Urine Ketones 2+ H Urine Blood Negative Urine Nitrite Negative Urine Bilirubin Negative Urine Urobilinogen Negative Ur Leukocyte Esterase Trace H Urine WBC (Auto) 0-5 Urine RBC (Auto) 0-2 U Hyaline Cast (Auto) 0-2 U Epithel Cells (Auto) 0-2 Urine Bacteria (Auto) None Seen Urine Comment 11/29/24 05:42 WBC 6.80 RBC 4.64 L Hgb 14.0 Hct 41.2 L MCV 88.8 MCH 30.2 MCHC 34.0 RDW Std Deviation 40.0 RDW Coeff of Roberta 12.3 Plt Count 214 MPV 9.9 Immature Gran % (Auto) 0.1 Neut % (Auto) 52.8 Lymph % (Auto) 29.7 [place] % (Auto) 11.5 Eos % (Auto) 5.6 Baso % (Auto) 0.3 Neut # (Auto) 3.59 Lymph # (Auto) 2.02 [place] # (Auto) 0.78 H Eos # (Auto) 0.38 Baso # (Auto) 0.02 Immature Gran # (Auto) 0.01 Sodium 140 Potassium 3.8 Chloride 108 H Carbon Dioxide 27 Anion Gap 5 BUN 12 Creatinine 0.86 Est Cr Clr Drug Dosing 112.3 eGFR 102.26 BUN/Creatinine Ratio 14.0 Glucose 106 H Lactate Calcium 8.1 L Total Bilirubin AST ALT Alkaline Phosphatase Total Protein Albumin Globulin Albumin/Globulin Ratio Lipase Urine Color Urine Appearance Urine pH Ur Specific [place] Urine Protein Urine Glucose (UA) Urine Ketones Urine Blood Urine Nitrite Urine Bilirubin Urine Urobilinogen Ur Leukocyte Esterase Urine WBC (Auto) Urine RBC (Auto) U Hyaline Cast (Auto) U Epithel Cells (Auto) Urine Bacteria (Auto) Urine Comment Diagnostic Findings CT scan personally viewed and interpreted agree with the assessment of a umbilical hernia no bowel involvement or evidence of strangulation. He also has an enteritis/ileitis. I do not feel there is any evidence of a bowel obstruction. Abdomen/Pelvis CT 11/28/24 21:53 CR Exam(s): CT ABDOMEN + PELVIS With Contrast IV Amt: 90cc optiray 320 EXAM: CT Abdomen and Pelvis With Intravenous Contrast CLINICAL HISTORY: Reason for exam: Periumbilical abd pain. Reduced hernia already.. TECHNIQUE: Axial computed tomography images of the abdomen and pelvis with intravenous contrast. CTDI is 27.45 mGy and DLP is 1517.88 mGy-cm. Automated exposure control was utilized for the study. A dose lowering technique was utilized adhering to the principles of ALARA. CONTRAST: Patient received 90cc optiray 320 of IV contrast COMPARISON: No relevant prior studies available. FINDINGS: Lung bases: Unremarkable. No mass. No consolidation. ABDOMEN: Liver: Fatty liver. Gallbladder and bile ducts: Unremarkable. No calcified stones. No ductal dilation. Pancreas: Unremarkable. No mass. No ductal dilation. Spleen: Unremarkable. No splenomegaly. Adrenals: Unremarkable. No mass. Kidneys and ureters: There is 4.3 x 4.4 cm solid mass lesion seen arising from the right renal cortex. No hydronephrosis. Stomach and bowel: There is mildly dilated fluid distended small bowel loops in the abdomen. There is diffuse dose to sigmoid colonic wall thickening which could be from ileitis. PELVIS: Appendix: No findings to suggest acute appendicitis. Bladder: Unremarkable. No mass. Reproductive: Unremarkable as visualized. ABDOMEN and PELVIS: Intraperitoneal space: Unremarkable. No free air. No significant fluid collection. Bones/joints: Moderate L5/S1 degenerative disc disease. No acute fracture. No dislocation. Soft tissues: Unremarkable. Vasculature: Unremarkable. No abdominal aortic aneurysm. Lymph nodes: Unremarkable. No enlarged lymph nodes. IMPRESSION: 1. Distal ileitis with low-grade small bowel obstruction 2. 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
--- NOTE | 2024-11-29 12:29 | Discharge Summary ---
Date of Service November 29, 2024 Admission HPI Per Admitting Provider 54 y/o male with no PMH that presented to the Ed due to abdominal pain. 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 He states having nausea as well. No vomiting. Pain was on his umbilical region. Patient had a bowel movement before arriving to the ED. Patient noticed that the umbilical hernia had been present since June. No outpatient work up had been done. He states passing gasses. Denied any weight loss. Denied any alcohol use or smoking. Denied any chills, fevers, diarrhea. Patient doesn't have a PCP, does not take any daily medication. On my evaluation patient was pain free after Tylenol. Principal Diagnosis See attending documentation Discharge Exam Gen: NAD, WD/WN HEENT: NCAT, normal conjunctiva, anicteric sclera, MMM CV: RRR, no m/r/g, S1/S2 normal, no LE edema Resp: CTAB, symmetrical chest rise, breathing non-labored/no increased WOB Abd: Soft, NT/ND, +BS, no HSM MSK: Full ROM, no gross deformities on inspection Skin: Warm, dry, well-perfused, no rashes appreciated Neuro: AOx3, CN III-XII grossly intact, no focal deficits Psych: Full, euthymic affect. Speech pace and content normal. Good insight Discharge Data Allergies Allergy/AdvReac Type Severity Reaction Status Date / Time pollen extracts Allergy Intermediate ITCHY Verified 11/28/24 21:41 EYES, SNEEZING, CONGESTION Consultations 11/29/24 01:24 ED Decision to Admit Stat 11/29/24 01:25 Consult General Surgery Stat 11/29/24 06:07 Consult Urology Routine 11/29/24 08:57 Consult Gastroenterology Routine Ordered Studies 11/28/24 21:53 CT abd pelvis IV con only Stat Hospital Course (1) Small bowel obstruction: (2) No significant past surgical history: (3) Kidney mass: Plan Patient is a 54yo M with no significant PMH and no h/o abd surgeries, who presented to the ED on 11/28 due to severe abdominal pain. Initial imaging demonstrated small bowel obstruction, known umbilical hernia, and incidental finding of a solid mass lesion in the right kidney. He was admitted for pain management and bowel rest. Small bowel obstruction - Patient with no history of abd surgeries. 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 Periumbilical, nonradiating, 10/10 at worst / with movement. Also had nausea & lightheadedness, but no vomiting. Reported having a BM before arriving to the ED; denied any bleeding or black stools - CT A/P showed distal ileitis with low grade small bowel obstruction. Labs showed no leukocytosis. Patient remained afebrile with VSS - Gen surg was consulted; recommended NPO and IVF, no acute surgical intervention indicated for SBO or hernia - Overnight, pt given LR 125 ml/hr. Had another BM this morning and reported resolution of pain. Was started on clear liquid diet, which was advanced to regular when tolerated. Pt deemed safe for discharge when normal bowel function, no n/v with regular diet, and plan established for outpatient colonoscopy to further evaluate distal ileitis. Umbilical hernia - Known since June - No outpatient workup - No urgent repair at this time Solid mass right kidney - Incidental finding on CT A/P: 4.3 x 4.4 cm solid mass lesion of right renal cortex; no hydronephrosis. - Kidney function normal. Patient denied any issues, weight loss, constitutional sx - Urology was consulted. Pt will need to follow up with them for biopsy vs removal of the mass. CM will reach out w/ appt - Also recommend pt establish with a PCP to further monitoring & routine health maintenance. Recommendations were made for appropriate local providers Total Time Total Time Spent Total Time Spent (In Minutes): <30 Discharge Plan Discharge Items Patient Disposition: Home - Self-Care Reason For Visit: SBO Discharge Diagnosis: SBO, terminal ileitis Condition on Discharge: Fair Activity: Resume your previous activity Non-emergency contact: Primary Care Provider, Land Leases And Rentals Manager and Urologist Call non-emergency contact if: you have any medication questions, your symptoms worsen and your pain is worsening Follow-up/Referrals: Olivier Dumas MD [Physician] - 01/11/25 9:00 am Boogie Lowe PA-C [Physician Mechanical Engineering Lecturer] - 12/07/24 10:30 am Cyn Herman MD [Resident] - 12/12/24 10:40 am Diet: Regular Addtl Attending Provider Instructions: You were admitted to the hospital with a small bowel obstruction; this appears to have been caused by inflammation near the end of the small intestine. This can be caused by a variety of things and is most likely benign in etiology. That said, we strongly recommend having a colonoscopy done, both for rule out inflammatory bowel disease (Crohn's disease) and for routine colon cancer screening, for which you are overdue. Your imaging study also demonstrated a mass on the right kidney. Please follow up with urology for biopsy vs removal of this mass. Our case management team will reach out to you directly to schedule follow up with these specialists. We also recommend establishing a regular PCP and following up with them soon after discharge from the hospital. We discussed the following providers with you during your stay: Dr. Cyn Herman - The resident you saw while admitted. Can be reached at The two providers listed below operate under a direct primary care model: Dr. Sharon Durham @[facility] [place] JOANNE Dorman Dr.Gregory Ferreira Pending Studies at Discharge: No Stand-Alone Forms: My [facility] PlayPhone, Smoking Cessation Medications and DC Order Prescriptions: Continued acetaminophen [Tylenol Extra Strength] 500 mg Tablet 1,000 mg PO Q6H PRN (Reason: Pain) Discharge Orders: Discharge Order (Routine); Ordered 11/29/24 Ordered By: Adilson Hardin/Other Patient Handouts: Anatomy of the Digestive System, ED Hernia (Adult), ED Tumor, Uncertain Cause Admission Data Admit Date/Time: 11/29/24 01:49 Attending Provider: Vikram Mclaughlin Admit Provider: Boris Horta Primary Care Provider: PCP,NO Other Providers: David Quiroz; Milton Sanchez; Russell Ortiz; Felix Chiu I Other Interventions: Discharge Summary Assessment (RN) Last Done: 11/29/24 13:43 Supervising Physician Co-Signing Physician Notes I personally examined the patient and verified all rowell points of history and exam, discussed case, and agree with decision making with Dr Herman Feeling better. Abdominal pain resolved. Bowels working. Patient seen right after eating clear liquid diet, and has sat well with no increase in pain or nausea. Vitals noted, in general he is awake and alert pleasant no distress. HEENT normocephalic atraumatic mucous membranes moist. Breathing unlabored no accessory muscle use good effort. Skin without rashes pallor or icterus. Neuro without focal deficits. Labs and diagnostics noted. SBOdue to ileitisresolved. Advance diet, assuming he tolerates regular diet Home later today ileitisseems to already be resolving. Would be in a strange age range for Crohn's, but discussed with patient that this is the diagnosis of exclusion. Willing to have colonoscopy in the near future as an outpatient. . Outpatient GI follow-up. Safe/stable for home. Renal massdiscussed with patient unequivocally we have to assume this is a cancer until proven otherwise. Discussed no signs of metastatic disease right now, and therefore diagnosis (and assuming cancer is confirmed) definitive treatment should be curative. Discussed that once renal cell carcinoma is metastatic it is not entirely different and much more life-threatening story. He has been seen by urologyshould continue to follow-up with them Safe/stable for home. Otherwise as above. Resident Activity Tracking Resident Involvement: Resident Care Provided Care Provided: Adult Hospital Medicine
--- NOTE | 2024-11-29 13:21 | Billing Data ---
Date of Service November 29, 2024 Coding Level of Care Code 66558 IN/OBS DISCH 30 MIN/LESS
== END 2024-11-29 15:21 | disposition home or self-care (01) | DRG 392 ==
LOC: ED 20:44 → SUATTDRO 11-29 01:49 → 3E 11-29 01:49 → INTOOBSV 11-29 01:49 → 3E 11-29 03:29

== ENCOUNTER 2025-01-31 09:28 | Observation (INO) ==
--- NOTE | 2025-01-26 15:58 | Anesthesiology Consultation ---
Date of Service January 26, 2025 Assessment & Plan (1) Encounter for pre-operative examination: - Infectious disease screening: Per assessment on 01/27/25- No known recent infectious disease contacts or current infectious disease symptoms. - Colonoscopy (12/08/24): MAC at [facility]. No issues noted per post-op anesthesia progress note. - GI visit (12/15/24): "Patient is here today to follow up on recent hospitalization and colonoscopy. He was admitted for a SBO and concern for ileitis. Colonoscopy also revealed ileitis but no definitive features of IBD. no significant nsaid use. he is currently asymptomatic.. check stool studies to rule out infectious cause.. check IBD 7 panel.. recommended he have a colonoscopy in 1 year for follow up.. recommend he proceed with evaluation of kidney mass. he tells me that he has appointment next month. Given concern for neoplasm, will see if this can be moved up.. he prefers to follow up as needed. We discussed that pending results of the IBD 7 panel, may need to be seen sooner." - IBD panel testing unremarkable. Stool study note completed. Per GI workload note 12/26/24, "Pt is now stating he's unsure what good it would do to have this test done as he hasn't had symptoms in 2+ weeks and his symptoms only lasted 1 night." GI Provider response 12/26/24, "If he just wishes to monitor, that is fine." Chart Review Chart Review: Acceptable Risk for Surgery (pending evaluation DOS) and Patient NOT seen in Pre Admission Testing History Surgery Operation Date: 01/31/25 10:50 Proposed Procedures p Robotic Laparoscopic Assisted Partial Nephrectomy, Possible Radical Nephrectomy - Right - Luis Mcfadden MD Height/Weight Height: 5 ft 10 in Weight: 106.594 kg Allergies Allergy/AdvReac Type Severity Reaction Status Date / Time pollen extracts Allergy Intermediate Itchy Verified 01/27/25 09:02 eyes, sneezing, congestion Medications Home Medications Medication Instructions Recorded Confirmed Last Taken acetaminophen 500 mg tablet 1,000 mg PO Q6H PRN Pain 11/28/24 01/27/25 Unknown (Tylenol Extra Strength) fluticasone propionate 50 2 spray intranasal DAILY PRN 01/27/25 01/27/25 Unknown mcg/actuation nasal allergies spray,suspension (Flonase Allergy Relief) pantoprazole 40 mg tablet,delayed 40 mg PO DAILY 01/27/25 01/27/25 Unknown release Past Medical History Medical History Acid reflux states protonix has helped History of asthma As child, no recent issues Ileitis 11/29/24 Kidney mass Right renal mass Periumbilical hernia Seasonal allergies Small bowel obstruction Hx 11/28/24, [facility] admisison, "resolved" Past Surgical History Surgical History History of colonoscopy 12/08/24, [facility] [place], [facility] Hx of foot surgery As child Social History Smoking Status: Former smoker Do You Dip or Chew Tobacco: No Hx Alcohol Use: Yes Alcohol type: beer alcohol intake frequency: holidays/special occasions only Hx Substance Use: No substance use type: does not use Lab Results Anesthesia Preop Results Results Anesthesia Widget: WBC 5.80 K/ul (4.8-10.8) 01/25/25 Hgb 14.2 g/dl (14.0-18.0) 01/25/25 Hct 41.5 % (42.0-52.0) L 01/25/25 Plt 231 K/uL (130-400) 01/25/25 Na 141 mmol/L (136-145) 01/25/25 K 3.8 mmol/L (3.5-5.1) 01/25/25 Cl 107 mmol/L (98-107) 01/25/25 CO2 30 mmol/L (21-32) 01/25/25 BUN 12 mg/dl (6-23) 01/25/25 Creat 0.90 mg/dl (0.6-1.4) 01/25/25 Glucose Level 92 mg/dl (70-99(Fasting)) 01/25/25 Testing Laboratory Results 12/08/24 Stool Calprotectin <5 12/15/24 ANCA Screen negative Proteinase-3 Ab <1.0 Myeloperox Ab <1.0 Gastrointestinal pathogen panel, PCR- test not performed, no suitable specimen received 01/25/25 Urine culture no growth (preliminary) Electrocardiogram Date: 01/25/25 SB at 51bpm. "Otherwise normal ECG" Chest X-Ray Date: 01/25/25 Impression: 1. No active cardiopulmonary disease. No other abnormality is noted. Other Testing Chest CT Date: 01/25/25 FINDINGS: Thoracic aorta: There is mild atherosclerotic calcification of the thoracic aorta, which is normal in caliber and demonstrates 4-vessel arch anatomy. 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 No dissection is seen. Lungs and pleural spaces: Evaluation of the lung parenchyma is modestly degraded by motion artifact. Emphysematous change is noted. There is no airspace consolidation typical for pneumonia or pleural effusion. The trachea and central airways are clear. Diffuse peribronchial thickening suggests bronchitis/reactive airway disease. Upper abdomen: There are calcified gallstones. The liver is steatotic. A 4 cm mass is partially visualized in the upper pole of the right kidney. There is ectasia of the celiac trunk which measures up to 12 mm in diameter. A 1.4 cm enhancing splenic lesion on image #188 is pathologically indeterminate and statistically doubtful significance. IMPRESSION: 1. There is no evidence of intrathoracic metastatic disease. 2. Emphysema. 3. There is no airspace consolidation or pleural effusion. 4. A right renal mass is partially imaged, and was better assessed on the 11/28/[address] scan. A renal cell carcinoma remains the diagnosis of exclusion. 5. An aberrant right subclavian artery is incidentally noted. 6. Hepatic steatosis and cholelithiasis. 7. Additional findings as above.
[~2025-01-31 09:28] MED LIST: ACETAMINOPHEN 1000 MG/100 ML IV IV ONE; DEXAMETHASONE SOD INJ 4 MG/ML VIAL ONE; LIDOCAINE 2% 2 ML VIAL/AMP(20MG/ML) INFIL ONE; MIDAZOLAM HCL 1 MG/ML 2ML VIAL ONE; ONDANSETRON INJ 2 MG/ML 2 ML VIAL ONE; PROPOFOL IV EMULSION 10 MG/ML 20 ML VIAL IV ONE; ROCURONIUM BROMIDE 10 MG/ML 5 ML VIAL IV ONE
[2025-01-31] MEDS: LR 15ML/HR IV SCH (10:00)
[2025-01-31] MEDS ORDERED: ONDANSETRON INJ 2 MG/ML 2 ML VIAL IV PRN ×2 (10:08→17:27)
[2025-01-31] MEDS ORDERED: FLUMAZENIL 0.1 MG/1 ML 10 ML VIAL IV PRN (10:08)
[2025-01-31] MEDS ORDERED: HYDROmorphone INJ 1 MG/ML SYRINGE IV PRN (10:08)
[2025-01-31] MEDS ORDERED: ATROPINE SULFATE 0.1 MG/ML 10ML SYR IV PRN (10:08)
[2025-01-31] MEDS ORDERED: PROMETHAZINE HCL 6.25 MG in SODIUM CHLORIDE 0.9% 50 ML IV PRN (10:08)
[2025-01-31] MEDS ORDERED: NALOXONE HCL 0.4 MG/1 ML VIAL/CARP IV PRN (10:08)
--- NOTE | 2025-01-31 11:14 | History & Physical Report ---
Date of Service January 31, 2025 Assessment & Plan (1) Kidney mass: Plan Right renal masssuspected renal cell carcinoma Presenting today for definitive treatment. We had a lengthy conversation about partial versus radical nephrectomy. I think it is safest to approach this with the intent of performing a radical nephrectomy. I did discuss this at length with the patient who is very much in agreement. He has a healthy contralateral kidney. I fear that complication risk from a partial nephrectomy with a tumor of his type is relatively high. He is very understanding of the situation. We will approach this laparoscopically with the intent of removing the whole kidney. History of Present Illness Primary Care Provider: NO PCP Incidentally discovered right renal mass presenting today for definitive treatment in the form of surgery. He has had a chest CT as well as an abdominal pelvis CT He has had creatinine levels and he has a healthy contralateral kidney without e vidence of metastatic or progressive disease in any other parts of the abdomen or chest. Allergies Allergy/AdvReac Type Severity Reaction Status Date / Time pollen extracts Allergy Intermediate Itchy Verified 01/31/25 09:46 eyes, sneezing, congestion Home Medications Medication Instructions Recorded Confirmed Type acetaminophen 500 mg tablet 1,000 mg PO Q6H PRN Pain 11/28/24 01/31/25 History (Tylenol Extra Strength) fluticasone propionate 50 2 spray intranasal DAILY PRN 01/27/25 01/31/25 History mcg/actuation nasal allergies spray,suspension (Flonase Allergy Relief) pantoprazole 40 mg tablet,delayed 40 mg PO DAILY 01/27/25 01/31/25 History release Past Med/Surg History Problem List Encounter for pre-operative examination Periumbilical hernia (Acute) Kidney mass (Acute) Medical History Seasonal allergies Acid reflux states protonix has helped Ileitis 11/29/24 Periumbilical hernia History of asthma As child, no recent issues Small bowel obstruction Hx 11/28/24, [facility] admisison, "resolved" Kidney mass Right renal mass Surgical History History of colonoscopy 12/08/24, [facility] Hx of foot surgery As child Social History Smoking Status: Former smoker Smoking End Date: 12 years; Second Hand Exposure: No; Do You Dip or Chew Tobacco: No; Tobacco Cessation Education Requested by Patient: No Hx Alcohol Use: Yes Alcohol type: beer Hx Substance Use: No Preferred Language: Malawian Communication Ability: Effective Vocational Instructor Required: No Beliefs That Will Affect Care: None Current Living Situation: Alone Other Information That Helps Us Care for You: No Feels Safe at Home: Yes Safety Concerns: Feels Safe At This Time Assistive Devices: Denture - Upper, Denture - Lower and Glasses Review of Systems no fever, no chills and no fatigue no worsening vision no facial pain and no pain with swallowing no cough and no dyspnea no chest pain and no palpitations no abdominal pain, no nausea and no vomiting no back pain no rash and no urticaria no gait abnormality and no unsteadiness no behavioral changes and no depression no fatigue Physical Exam Constitutional: well developed and well nourished Neck: neck nontender Respiratory: normal respiratory effort; no respiratory distress and does not use accessory muscles Cardiovascular: Rate/Rhythm: regular rate Vessels: radial pulses present Extremities: no edema Gastrointestinal (Abdomen): Inspection/Auscultation: abdomen normal to inspection Percussion/Palpation: abdomen soft; abdomen nontender and no guarding Musculoskeletal: Head/Neck/Chest: normocephalic and head atraumatic Extremities: extremities normal to inspection Skin: no rashes and no lesions Trauma: no evidence of skin trauma Neurologic: awake; not obtunded Speech / Cognition: normal speech Motor/Sensory: no tremor Psychiatric: Orientation: alert and oriented x 3 Genitourinary: no CVA tenderness Lymphatic: no lymphadenopathy Results & Data Vital Signs (Past 12 Hours) Vital Signs Temp Pulse Resp BP Pulse Ox O2 Del Method 01/31/25 09:49 36.5 C 63 18 160/90 H 97 Room Air
[2025-01-31] MEDS ORDERED: GLYCOPYRROLATE 0.2 MG/ML VIAL ONE (12:18)
[2025-01-31] MEDS ORDERED: ePHEDrine sulfate 50 MG/5 ML SYR ONE (12:21)
[2025-01-31] MEDS ORDERED: ROCURONIUM BROMIDE 10 MG/ML 5 ML VIAL IV ONE (12:31)
[2025-01-31] MEDS ORDERED: SUGAMMADEX SODIUM 200 MG/2 ML VIAL IV ONE (13:04)
[2025-01-31] MEDS ORDERED: PROPOFOL IV EMULSION 10 MG/ML 20 ML VIAL IV ONE (13:07)
[2025-01-31] MEDS ORDERED: HYDROmorphone INJ 2 MG/ML SYR/VIAL ONE (13:16)
[2025-01-31] MEDS: BUPIVACAINE LIPOSOME 1.3% 266 MG/20 ML VIAL ONE (13:16)
[2025-01-31] MEDS: BUPIVACAINE 0.5 % 5 MG/1 ML MPF 30ML VIAL ONE (13:16)
--- NOTE | 2025-01-31 13:38 | Operative Report ---
PG Post Operative Report Pre & Post Diagnosis Operation Date: 01/31/25 10:50 Pre-Op Diagnosis: Right renal mass; umbilical hernia Post-Op Diagnosis: Right renal mass; umbilical hernia I identified the patient and participated in the time-out.: Yes Procedure Operation Date: 01/31/25 10:50 Actual Procedures p Laparoscopic Hand Assisted Right Nephrectomy(Right) - Luis Mcfadden MD Surgeon Luis Mcfadden MD Financial Compliance Officer Jani Jameson, PAC Estimated Blood Loss 50 Findings Consistent with Post-Op Diagnosis Specimens Right kidney and perinephric fat Description of Procedure The patient was identified in the preoperative holding area, appropriate informed consents reviewed and completed and the patient was transported to the operating suite. Upon arrival he received appropriate preoperative antibiotics and general anesthesia. He was placed in the left side down right side up lateral decubitus position with the bed flexed. He was padded and braced appropriately. Of note, he has a relatively significant umbilical hernia. This was visualized on preoperative imaging and did not reduce with positioning. Before making any incisions I marked some potential skin incisions. The first was a Branch style incision lateral to the umbilicus beginning at the lateral border of the rectus muscle and extending approximately 8 cm laterally and slightly cephalad. I then tentatively marked to assisting laparoscopic port locations on the rectus border, the superior port being approximately 3 fingerbreadths below the costal margin and the other approximately 8 cm inferior to that. I also marked an infraumbilical port site which would allow closure of the umbilical hernia and access to the belly if necessary. I incised the skin over the Branch style right lower quadrant location. We carried this through the superficial tissues including Joss's fascia before exposing the external oblique fascia. I opened the external bleak fascia and musculature followed by opening of the internal oblique fascia. I pierced sharply through the transversalis fascia and performed a's finger sweep which confirmed that there were no adhesions. His appendix was visualized immediately beneath the incision. I expanded the transversalis/peritoneal incision for the length of the skin incision. We then placed a GelPort retractor. I insufflated the abdomen by placing a 12 mm lap port through the GelPort. We then inspected and confirmed that the anterior abdominal wall was free of adhesions. There was fat/omentum herniating into the umbilical location. I then incised the skin and the previously marked assisting locations. I placed my hand back through the GelPort and advanced ports directly onto my hand. These were both 12 mm ports. At that time I turned my attention back to the umbilical area and I was able to utilize a grasper to reduce the omentum from the hernia. The defect itself was relatively small, round [address] not [address] a port at that time as I wanted to wait to see if it was absolutely necessary. I then began the laparoscopic portion of the case by incising the white line of Toldt and carried this dissection up lateral to the kidney. I turned medially across the medial/inferior aspect of the kidney to follow the hepatic flexure of the colon and medialized the colon entirely. We then kocherized the duodenum. I then connected a peritoneal incision from the superior lateral border of the kidney to the superior medial border of the kidney. I then turned my attention back to the inferior border of the kidney and I began to elevate the kidney and Gerota's fascia and dissect onto the psoas muscle. I was able to visualize the gonadal vein as well as the ureter. The ureter was kept with the packet and elevated and the gonadal vein was left medial to the rest of our dissection as it pierces into the IVC and around this location. I created a window on the psoas muscle up behind the hilar structures of the kidney and I was able to palpate both an artery and what I suspect was the venous structure. I dissected carefully up the lateral borders of the IVC until I was able to encounter the inferior border of the renal vein. I was also able to visualize the renal artery in this location and expose both entirely. I used a solitary staple load to control the 2 vessels. The remaining tissue of the hilum was relatively scant and minimal and I fired a second staple load between the adrenal gland and the superior medial border of the kidney. I was able to free the kidney entirely by utilizing the harmonic scalpel to resect/incised the remainder of the connections. The ureter was the only remaining connection in the inferior aspect of the kidney and I controlled this with the harmonic scalpel. The specimen was entirely freed at that time and was extracted through the GelPort. Hemostasis was outstanding, the colon was lateralized again. I proceeded to close the 212 mm retail event and sales assistant ports with a 0 Vicryl in a Roberth- Shawanda device. I elected to open the infraumbilical incision and close his umbilical hernia given that it was relatively small and we had already marked this area. I made a transverse infraumbilical incision and expose the fascia. We freshened the fascial edges and I opened through the hernia defect itself. I then utilized 0 PDS in [id number] fashion2 separate stitches to close the defect entirely. Skin was reapproximated with a 4-0 Monocryl after infiltration with Exparel and Marcaine mixed. I then closed the the extraction port in multiple layers beginning with 0 Vicryl through the transversalis and peritoneum followed by 0 Vicryl through the internal oblique fascia and then another running 0 Vicryl through the external oblique fascia. Joss's fascia was additionally reapproximated with 3 interrupted 0 Vicryl sutures followed by closure of the skin with a 4-0 Monocryl in running fashion. I did infiltrate the musculature and skin layers of all of the incisions with a mixture of Marcaine and Exparel. Dermabond was placed in all the incisions and the case was concluded. He tolerated the procedure extr ramesh well and was taken to the recovery room in stable condition. Jani Jameson, DAO assisted throughout the surgery from incision to closure. Only specimen was kidney with perinephric fat. I attest to the content of the Intraoperative Record and any orders documented therein. Any exceptions are noted below.
--- NOTE | 2025-01-31 14:31 | Anesthesiology Progress Note ---
Date of Service January 31, 2025 Anesthesia Post Procedure Vital Signs Vital Signs: Temp Pulse Resp BP Pulse Ox O2 Del Method O2 Flow Rate 01/31/25 14:15 36.2 C L 59 L 15 120/80 96 Nasal Cannula 2 01/31/25 14:05 55 L 16 139/85 99 Nasal Cannula 4 01/31/25 13:55 56 L 16 131/79 99 Nasal Cannula 4 01/31/25 13:45 55 L 16 115/81 95 Oxymask 5 01/31/25 13:38 36.1 C L 52 L 16 141/89 H 95 Oxymask 5 01/31/25 09:49 36.5 C 63 18 160/90 H 97 Room Air Transfer of Care Handoff Completed per policy Notes Mental Status: alert / awake / arousable Patient Amnestic to Procedure: Yes Nausea / Vomiting: adequately controlled Pain: adequately controlled Airway Patency, RR, SpO2: stable & adequate BP & HR: stable & adequate Hydration State: stable & adequate Anesthetic Complications: no major complications apparent
[2025-01-31 14:32] LABS: Hematocrit (blood only) 42.6 % (42.0-52.0); Hemoglobin 14.2 g/dl (14.0-18.0); Immature Granulocytes # (auto) 0.04 K/uL (0.01-0.20); Immature Granulocytes % (auto) 0.4 %; Mean Corpuscular Hemoglobin 29.8 pg (25.0-34.0); Mean Corpuscular Volume 89.3 fL (80.0-100.0); Platelet Count 237 K/uL (130-400); RDW Standard Deviation 41.3 fL (36.4-46.3); Red Blood Count 4.77 M/uL (4.70-6.10); White Blood Count 11.02 K/ul (4.8-10.8)
[2025-01-31 14:47] LABS: Anion Gap 5.0 (3-11); Blood Urea Nitrogen 16.0 mg/dl (6-23); Calcium 8.4 mg/dl (8.6-10.3); Carbon Dioxide 28.0 mmol/L (21-32); Chloride 107.0 mmol/L (98-107); Creatinine Clr Calc Pharmacy 93.9 ml/min; Glucose 116.0 mg/dl (70-99(Fasting)); Potassium 4.1 mmol/L (3.5-5.1); Sodium 140.0 mmol/L (136-145)
[2025-01-31] MEDS ORDERED: FLUTICASONE PROPIONATE NA SPR 16 GM BTL PRN (17:27)
[2025-01-31] MEDS ORDERED: HYDROmorphone INJ 0.5 MG/0.5 ML SYR IV PRN ×2 (17:27)
[2025-01-31] MEDS: SODIUM CHLORIDE 0.9% 1,000 ML IV SCH (18:28)
[2025-01-31] MEDS: ACETAMINOPHEN 500 MG TAB PO PRN (19:47)
[2025-01-31] MEDS: HEPARIN SOD 5,000 UNIT/0.5 ML VIAL SQ SCH (20:40)
[2025-01-31] MEDS: DOCUSATE SODIUM 100 MG CAP PO SCH (20:40)
[2025-02-01 07:21] VITALS: RESP 16
--- NOTE | 2025-02-01 08:07 | Urology Progress Note ---
Date of Service February 01, 2025 Assessment & Plan (1) Periumbilical hernia: (2) Kidney mass: Plan Postop day #1 status post radical nephrectomy (right), for presumed renal cell carcinoma; concurrent umbilical hernia repair Doing very well Catheter out this morning Continue ambulation Advance diet Check later today to see if he is ready for discharge home, labs pending Admission and Anticipated Discharge Date Admission Date: January 31, 2025 Subjective Doing very well this morning Pain is under control Some expected levels of tenderness around the incision and some gas related pain but otherwise doing great Urine is clear and has had good urine output overnight Physical Exam Physical Exam: Incisions all appropriate, minimal bruising no erythema or drainage Results & Data Vital Signs (Past 12 Hours) Vital Signs Temp Pulse Pulse Resp BP Pulse Ox O2 Del Method 02/01/25 07:19 36.7 C 64 16 128/75 95 Room Air 02/01/25 03:00 36.6 C 65 18 138/79 95 Room Air 01/31/25 23:53 36.7 C 66 16 121/70 95 Room Air PG Care Time/CCT Total # of Minutes Spent Total Time Spent with Patient: Total time spent is greater than 50% in coordination of care (as documented) at patient's floor/unit and/or counseling patient: Coding Level of Care Code None Diagnoses Periumbilical hernia K42.9 Kidney mass N28.89
[2025-02-01 08:18] LABS: Hematocrit (blood only) 39.5 % (42.0-52.0); Hemoglobin 13.0 g/dl (14.0-18.0); Immature Granulocytes # (auto) 0.03 K/uL (0.01-0.20); Immature Granulocytes % (auto) 0.3 %; Mean Corpuscular Hemoglobin 29.5 pg (25.0-34.0); Mean Corpuscular Volume 89.8 fL (80.0-100.0); Platelet Count 229 K/uL (130-400); RDW Standard Deviation 42.7 fL (36.4-46.3); Red Blood Count 4.40 M/uL (4.70-6.10); White Blood Count 9.54 K/ul (4.8-10.8)
[2025-02-01 08:35] LABS: Anion Gap 6.0 (3-11); Blood Urea Nitrogen 18.0 mg/dl (6-23); Calcium 8.1 mg/dl (8.6-10.3); Carbon Dioxide 28.0 mmol/L (21-32); Chloride 104.0 mmol/L (98-107); Creatinine Clr Calc Pharmacy 63.6 ml/min; Glucose 114.0 mg/dl (70-99(Fasting)); Potassium 4.0 mmol/L (3.5-5.1); Sodium 138.0 mmol/L (136-145)
[2025-02-01 11:35] VITALS: BP 126/73; PULSE 58; TEMP 97.7; O2SAT 95
--- NOTE | 2025-02-03 08:07 | Discharge Summary ---
Date of Service February 03, 2025 Admission HPI Per Admitting Provider Incidentally discovered right renal mass presenting today for definitive treatment in the form of surgery. He has had a chest CT as well as an abdominal pelvis CT He has had creatinine levels and he has a healthy contralateral kidney without evidence of metastatic or progressive disease in any other parts of the abdomen or chest. 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 He underwent right radical nephrectomy without incident. 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 Recovery went extremely well. His catheter was removed the morning after surgery and his labs were all appropriateurine output was appropriate. He additionally had an umbilical hernia repair at the time of surgery and was tolerating that recovery as well. All incisions were appropriate. He was discharged in stable condition on postoperative day #1. Total Time Total Time Spent Total Time Spent (In Minutes): 15 Discharge Plan Discharge Items Patient Disposition: Home - Self-Care Reason For Visit: Other Specified Disorders of Kidney and Ureter Discharge Diagnosis: Right renal mass Activity: Per Instructions section Bathing Comment: OK to shower. No tub baths or soaks. Sexual Activity: Wait until after follow-up appointment Exercise/Sports: Wait until after follow-up appointment Driving/Machine Use: Do not drive if taking prescription pain medication Non-emergency contact: Surgeon and Urologist Call non-emergency contact if: you have any medication questions, your symptoms worsen, your pain is not controlled, you have a fever, your wound has increased redness, your wound has increased drainage and your wound pain has increased Follow-up/Referrals: Luis Mcfadden MD [Physician] - PCP,NO [Primary Care Provider] - Diet: Regular Addtl Attending Provider Instructions: Please take all medications as prescribed and keep all follow-ups as scheduled. Please call our office at [phone] with any questions, concerns or need to reschedule appointments for any reason. We are happy to assist you. The urology office will contact you to arrange follow-up. Recovering at home: We recommend having someone with you for the first few days after surgery to help care for you. It is okay to shower tomorrow. Please avoid swimming, bathing or using hot tub until incisions are well healed. Avoid driving until you are not requiring pain medication any further. Walk at least a few times a day. Increase your distance, as you feel able. Stairs in your home are okay. Please avoid strenuous or sexual activity until your follow-up. We recommend using stool softener (i.e. Colace) to prevent constipation and straining, especially the first two weeks post operatively. Call [facility] at [phone] if you experience: Chest pain or trouble breathing (call [phone] or go to the hospital). Fever of 101F or higher Symptoms of infection at incision site, including redness or swelling, warmth, or bad-smelling drainage If you are unable to urinate Pain that is not controlled with medicines Pending Studies at Discharge: Yes (pathology) Stand-Alone Forms: My [facility], Smoking Cessation Medications and DC Order Prescriptions: New oxycodone 5 mg tablet 5 mg PO Q8H PRN (Reason: pain) Qty: 7 0RF Continued acetaminophen [Tylenol Extra Strength] 500 mg Tablet 1,000 mg PO Q6H PRN (Reason: Pain) fluticasone propionate [Flonase Allergy Relief] 50 mcg/actuation [place],Suspension 2 spray INTRANASAL DAILY PRN (Reason: allergies) pantoprazole 40 mg tablet,delayed release (DR/EC) 40 mg PO DAILY Discharge Orders: Discharge Order (Routine); Ordered 02/01/25 Ordered By: Jia Hardin/Other Patient Handouts: DVT Post Op Prevention Admission Data Admit Date/Time: 01/31/25 13:36 Attending Provider: Luis Mcfadden Admit Provider: Luis Mcfadden Primary Care Provider: PCP,NO Other Interventions: Discharge Summary Assessment (RN) Last Done: 02/01/25 13:35 Coding Level of Care Code 07201 IN/OBS DISCH 30 MIN/LESS Diagnoses Clear cell papillary renal cell carcinoma C64.9
== END 2025-02-01 13:55 | disposition home or self-care (01) ==
LOC: ASU 09:28 → PACUINP 13:36 → INTOOBSV 13:36 → 3N 17:07